=== PATIENT | female | born 1985 | race Caucasian/White ===

== ENCOUNTER 2016-07-23 13:42 | Emergency (ER) | payer BC, OTHER ==
[~2016-07-23] VITALS: Ht 160 cm; Wt 54.4 kg
[~2016-07-23 13:42] MED LIST: ABIL10TA PO; ABIL5TAB PO; ATIV0.5T3 PO; ATIV1TAB10 PO; BENA25CA PO; BENA25TA4 PO; CALC500T36 PO; CALC600T7 PO; CLAR5CHW PO; CLON0.5T PO; CLON1TAB PO; EFFE75CA75 PO; EXCETAB80 PO; FOLI1TAB86 PO; KEFL500C7 PO; KLON0.5T PO; KLON1TAB PO; LORA0.5T PO; MULTCAP PO; MULTLIQ7 PO; MULTTAB4 PO; POLYOPD OU; TRAZ50TA2 PO; VITA100T2 PO; VITA500046 PO; VITAMIN D PO; WELL100T PO; ZOLO100T PO; ZOLO50TA PO
[2016-07-23] MEDS ORDERED: FLUO20CA8 PO (14:20)
[2016-07-23] MEDS ORDERED: LORA2CON5 PO (14:20)
[2016-07-23] MEDS ORDERED: TOPA25TA10 PO (14:20)
[2016-07-23] MEDS ORDERED: LORA1TAB12 PO (14:20)
[2016-07-23] MEDS ORDERED: NS 1,000 ML IV ONE (16:15)
[2016-07-23] MEDS ORDERED: KETOROLAC 30 MG/ML VIAL (J1885) IV ONE (16:15)
[2016-07-23] MEDS ORDERED: METOCLOPRAMIDE INJ 10MG/2ML VIAL (J2765) IV ONE (16:30)
[2016-07-23] MEDS ORDERED: MORPHINE 4 MG/ML 1ML SYRINGE IV ONE (17:45)
[2016-07-23 18:38] VITALS: BP 113/66
== END 2016-07-23 18:40 | disposition home or self-care (01) ==
LOC: M ED 13:42
DX: G43.909 Migraine, unspecified, not intractable, without status migrainosus (principal); Z79.899 Other long term (current) drug therapy; Z88.8 Allergy status to other drugs, medicaments and biological substances
CPT/HCPCS: 96374; 96375; 99282; J1885; J2765

== ENCOUNTER → 2016-10-05 | Outpatient (CLI) | payer OTHER ==
[~2016-10-05] MED LIST changes: +FLUO20CA8 PO; +LORA1TAB12 PO; +LORA2CON5 PO; +TOPA25TA10 PO
[2016-10-05 07:54] LABS: MEAN CORPUSCULAR HEMOGLOBIN 29.6 pg (27.0-33.0); MEAN CORPUSCULAR HGB CONC 33.6 g/dl (32.0-36.5); MEAN CORPUSCULAR VOLUME 88.1 fl (80.0-96.0); PLATELET COUNT, AUTOMATED 343 k/mm3 (150-450); RED CELL DISTRIBUTION WIDTH 11.8 % (11.5-14.5); WHITE BLOOD COUNT 6.3 K/mm3 (4.0-10.0)
[2016-10-05 08:10] LABS: EOSINOPHILS 2 % (0-5)
[2016-10-05 08:19] LABS: ALBUMIN/GLOBULIN RATIO 1.25 (1.00-1.93); ALKALINE PHOSPHATASE 47 U/L (45-117); ALT/SGPT 17 U/L (12-78); ANION GAP 8 MEQ/L (8-16); AST/SGOT 8 U/L (15-37); BILIRUBIN,TOTAL 0.4 MG/DL (0.2-1.0); BLOOD UREA NITROGEN 9 MG/DL (7-18); CALCIUM LEVEL 8.6 MG/DL (8.5-10.1); CARBON DIOXIDE LEVEL 29 MEQ/L (21-32); CHLORIDE LEVEL 104 MEQ/L (98-107); CREATININE FOR GFR 0.72 MG/DL (0.55-1.02); FREE T4 0.95 NG/DL (0.76-1.46); GLOMERULAR FILTRATION RATE > 60.0 (>60); GLUCOSE, FASTING 91 MG/DL (70-105); SODIUM LEVEL 141 MEQ/L (136-145); TOTAL PROTEIN 7.2 GM/DL (6.4-8.2)
[2016-10-07 10:21] LABS: FOLATE > 24.0 NG/ML; VITAMIN B12 LEVEL 452 PG/ML
== END ==
LOC: M LAB 07:20
PROVIDERS: ATTEND Physician Assistant
DX: F33.1 Major depressive disorder, recurrent, moderate (principal)

== ENCOUNTER → 2017-07-23 | Outpatient (CLI) | payer OTHER ==
[2017-07-23 16:06] LABS: HEMATOCRIT 42.2 % (36.0-47.0); HEMOGLOBIN 14.4 g/dl (12.0-16.0); MEAN CORPUSCULAR HEMOGLOBIN 28.5 pg (27.0-33.0); MEAN CORPUSCULAR HGB CONC 34.1 g/dl (32.0-36.5); MEAN CORPUSCULAR VOLUME 83.6 fl (80.0-96.0); PLATELET COUNT, AUTOMATED 417 10^3/uL (150-450); RED BLOOD COUNT 5.05 10^6/uL (4.00-5.40); RED CELL DISTRIBUTION WIDTH 12.3 % (11.5-14.5); WHITE BLOOD COUNT 8.3 10^3/uL (4.0-10.0)
[2017-07-23 16:39] LABS: ALBUMIN 4.2 GM/DL (3.2-5.2); ALKALINE PHOSPHATASE 73 U/L (45-117); ALT/SGPT 23 U/L (12-78); ANION GAP 6 MEQ/L (8-16); AST/SGOT 10 U/L (7-37); BILIRUBIN,TOTAL 0.2 MG/DL (0.2-1.0); BLOOD UREA NITROGEN 13 MG/DL (7-18); CALCIUM LEVEL 9.3 MG/DL (8.5-10.1); CARBON DIOXIDE LEVEL 30 MEQ/L (21-32); CHLORIDE LEVEL 104 MEQ/L (98-107); CREATININE FOR GFR 0.74 MG/DL (0.55-1.30); GLOMERULAR FILTRATION RATE > 60.0 (>60); GLUCOSE, FASTING 127 MG/DL (70-100); POTASSIUM SERUM 3.6 MEQ/L (3.5-5.1); SODIUM LEVEL 140 MEQ/L (136-145); TOTAL PROTEIN 7.7 GM/DL (6.4-8.2); URIC ACID 4.9 MG/DL (2.6-6.0)
[2017-07-23 16:45] LABS: TOTAL 25(OH) VITAMIN D 20.3 NG/ML (30.0-100.0)
== END ==
LOC: M LAB 15:24
DX: M25.531 Pain in right wrist (principal); E55.9 Vitamin D deficiency, unspecified
CPT/HCPCS: 84550

== ENCOUNTER → 2018-08-04 | Outpatient (REF) | payer OTHER ==
[~2018-08-04] MED LIST changes: +EFFE75CA2 PO; -EFFE75CA75 PO; +KEFL500C17 PO; -KEFL500C7 PO; +TOPA1TAB PO; -TOPA25TA10 PO
[2018-08-06 15:52] LABS: HPV HYBRID CAPTURE II Negative (Negative)
== END ==
LOC: M LAB REF 19:28
PROVIDERS: ATTEND Family Medicine
DX: Z12.4 Encounter for screening for malignant neoplasm of cervix (principal)
CPT/HCPCS: 87624; G0123

== ENCOUNTER → 2018-12-23 | Outpatient (CLI) | payer OTHER, BC ==
[2018-12-23 11:45] LABS: BLOOD UREA NITROGEN 16 MG/DL (7-18); CALCIUM LEVEL 9.4 MG/DL (8.5-10.1); CARBON DIOXIDE LEVEL 31 MEQ/L (21-32); CHLORIDE LEVEL 104 MEQ/L (98-107); CHOLESTEROL LEVEL 206 MG/DL (<200); CHOLESTEROL RISK RATIO 3.269 (<5); CREATININE FOR GFR 0.72 MG/DL (0.55-1.30); GLOMERULAR FILTRATION RATE > 60.0 (>60); GLUCOSE, FASTING 83 MG/DL (70-100); HDL CHOLESTEROL 63 MG/DL (>40); LDL CHOLESTEROL 123 MG/DL (<100); NON-HDL-C 143 MG/DL; POTASSIUM SERUM 4.6 MEQ/L (3.5-5.1); SODIUM LEVEL 139 MEQ/L (136-145); TRIGLYCERIDES LEVEL 102 MG/DL (<150)
[2018-12-23 11:49] LABS: HEMOGLOBIN A1c 5.7 %
== END ==
LOC: M LAB 09:15
PROVIDERS: ATTEND Physician Assistant
DX: Z02.1 Encounter for pre-employment examination (principal)

== ENCOUNTER → 2019-01-11 | Outpatient (CLI) | payer BC ==
[2019-01-11 18:22] LABS: BASO # 0.1 10^3/uL (0.0-0.2); BASO % 0.7 % (0.0-1.0); EOS % 0.4 % (0.0-3.0); HEMATOCRIT 43.3 % (36.0-47.0); HEMOGLOBIN 14.4 g/dl (12.0-15.5); LYMPH % 25.8 % (24.0-44.0); MEAN CORPUSCULAR HEMOGLOBIN 29.8 pg (27.0-33.0); MEAN CORPUSCULAR HGB CONC 33.3 g/dl (32.0-36.5); MEAN CORPUSCULAR VOLUME 89.5 fl (80.0-96.0); MONO # 0.4 10^3/uL (0.0-0.8); MONO % 4.7 % (0.0-5.0); NEUTROPHILS # 5.2 10^3/uL (1.8-7.7); NEUTROPHILS % 68.1 % (36.0-66.0); PLATELET COUNT, AUTOMATED 280 10^3/uL (150-450); RED BLOOD COUNT 4.84 10^6/uL (4.00-5.40); WHITE BLOOD COUNT 7.6 10^3/uL (4.0-10.0)
[2019-01-11 18:51] LABS: ALBUMIN 4.2 GM/DL (3.2-5.2); ALT/SGPT 22 U/L (12-78); BILIRUBIN,TOTAL 0.4 MG/DL (0.2-1.0); BLOOD UREA NITROGEN 21 MG/DL (7-18); CALCIUM LEVEL 9.5 MG/DL (8.5-10.1); CARBON DIOXIDE LEVEL 29 MEQ/L (21-32); CHLORIDE LEVEL 104 MEQ/L (98-107); CREATININE FOR GFR 0.82 MG/DL (0.55-1.30); GLOMERULAR FILTRATION RATE > 60.0 (>60); GLUCOSE, FASTING 114 MG/DL (70-100); POTASSIUM SERUM 4.1 MEQ/L (3.5-5.1); RHEUMATOID FACTOR QUANT < 10.0 IU/ML (<15.0); SODIUM LEVEL 138 MEQ/L (136-145); TOTAL 25(OH) VITAMIN D 68.8 NG/ML (30.0-100.0); TOTAL PROTEIN 7.4 GM/DL (6.4-8.2)
[2019-01-11 18:54] LABS: ERYTHROCYTE SEDIMENTATION RATE 2 mm/hr (0-20)
[2019-01-13 14:07] LABS: ANTINUCLEAR ANTIBODIES DIRECT Negative (Negative)
== END ==
LOC: M LAB 17:46
PROVIDERS: ATTEND Psychiatry & Neurology Neurology
DX: R51 Headache (principal)

== ENCOUNTER → 2019-04-17 | Outpatient (CLI) | payer BC ==
[2019-04-17 10:23] LABS: HEMOGLOBIN A1c 5.6 %
== END ==
LOC: M LAB 09:31
PROVIDERS: ATTEND Family Medicine
DX: R73.9 Hyperglycemia, unspecified (principal)

== ENCOUNTER 2019-05-13 09:21 | Emergency (ER) | payer OTHER ==
[~2019-05-13] VITALS: Ht 160 cm; Wt 51.0 kg
[2019-05-13 09:21] VITALS: BP 148/92
[~2019-05-13 09:21] MED LIST changes: +FLUO20CA20 PO; -FLUO20CA8 PO
[2019-05-13] MEDS ORDERED: SERO1TAB3 PO (09:29)
[2019-05-13] MEDS ORDERED: EMGA120I (09:29)
[2019-05-13] MEDS ORDERED: ADDE25CA (09:29)
[2019-05-13] MEDS ORDERED: BRIN1TAB3 (09:29)
[2019-05-13] MEDS ORDERED: ATIV1TAB7 (09:29)
[2019-05-13] MEDS ORDERED: ADDE1TAB14 (09:29)
[2019-05-13] MEDS ORDERED: RIZA5TAB (09:29)
[2019-05-13] MEDS ORDERED: BACL10TA2 (09:29)
[2019-05-13] MEDS ORDERED: IBUPROFEN 600 MG TAB PO ONE (10:30)
[2019-05-13] MEDS ORDERED: ONDANSETRON 4 MG ORAL DISINTEGRATING TAB (Q0162 PER 1MG) PO ONE (10:30)
[2019-05-13] MEDS ORDERED: ONDA4TAB6 PO (10:30)
== END 2019-05-13 10:40 | disposition home or self-care (01) ==
LOC: M ED 09:21
DX: S46.812A Strain of other muscles, fascia and tendons at shoulder and upper arm level, left arm, initial encounter (principal); V49.49XA Driver injured in collision with other motor vehicles in traffic accident, initial encounter; Y92.410 Unspecified street and highway as the place of occurrence of the external cause; F43.10 Post-traumatic stress disorder, unspecified; R63.0 Anorexia; Z79.899 Other long term (current) drug therapy; Z88.8 Allergy status to other drugs, medicaments and biological substances
CPT/HCPCS: 99283; Q0162

== ENCOUNTER → 2019-08-06 | Outpatient (CLI) | payer OTHER ==
[~2019-08-06] MED LIST changes: +ADDE1TAB14; +ADDE25CA; +ATIV1TAB7; +BACL10TA2; +BRIN1TAB3; +EMGA120I; -LORA1TAB12 PO; +LORA1TAB4 PO; +ONDA4TAB6 PO; +RIZA5TAB; +SERO1TAB3 PO
--- NOTE | 2019-08-06 16:50 | REP ---
HISTORY: Hip pain. No trauma. FINDINGS: The hip joint space is symmetric and relatively well maintained. There is no acute or destructive osseous lesion. Electronically Signed by Jhonny Wong DO 08/06/2019 06:49 P
== END ==
LOC: M RAD 15:40
PROVIDERS: ATTEND Nurse Practitioner Family
DX: M25.551 Pain in right hip (principal)

== ENCOUNTER → 2019-11-02 | Outpatient (CLI) | payer OTHER ==
--- NOTE | 2019-11-02 16:24 | REP ---
MRI RIGHT HIP: TECHNIQUE: Coronal T1, STIR through the pelvis, T2 fat sat, right hip all three planes, axial oblique proton density fat sat right hip. The visualized osseous structures demonstrate normal bone marrow signal. There is no bone marrow edema or occult fracture. There is no evidence of avascular necrosis. I do not see evidence of a labral tear. No paralabral cyst is seen. There is a normal amount of joint fluid. 6 mm cyst is seen posteriorly along the obturator externus musculotendinous region. No other abnormal signal is seen in the surrounding soft tissues. There is a left ovarian cyst , which measures 4.2 cm. Right ovary is normal. There is mild free fluid in the pelvis. IMPRESSION: No occult fracture. No evidence of a labral tear. 6 mm cyst posteriorly along the musculotendinous region of the obturator externus. 4.2 cm left ovarian cyst with mild free fluid in the pelvis. Electronically Signed by Ovi Zaidi MD 11/04/2019 12:53 A
== END ==
LOC: M RAD 13:40
PROVIDERS: ATTEND Nurse Practitioner Family
DX: M25.551 Pain in right hip (principal)

== ENCOUNTER → 2019-11-23 | Outpatient (CLI) | payer OTHER | LOC: M LABSMTC 11:20 | PROVIDERS: ATTEND Family Medicine | DX: Z11.59 Encounter for screening for other viral diseases (principal); Z03.89 Encounter for observation for other suspected diseases and conditions ruled out | CPT/HCPCS: C9803; U0003 ==

== ENCOUNTER → 2020-01-26 | Outpatient (CLI) | payer OTHER ==
[~2020-01-26] MED LIST changes: -ADDE25CA; +ADDE25CA PO; -ATIV1TAB7; +ATIV1TAB7 PO; -BRIN1TAB3; +BRIN1TAB3 PO; +CALC-212 PO; -CALC600T7 PO; +CHOL50002 PO; +CYMB1CAP4 PO; +EXCETAB33 PO; +FLOM0.4C39 PO; +IBUP-1022 PO; +LACT3000 PO; +LORA-243 PO; +NORC1TAB7 PO; -RIZA5TAB; +RIZA5TAB PO; +SUMA50TA2 PO; +ZOFR4TAB16 PO; +vitamin b2 PO
[2020-01-26 08:54] LABS: BASO # 0.1 10^3/uL (0.0-0.2); BASO % 1.1 % (0.0-1.0); EOS # 0.2 10^3/uL (0.0-0.5); EOS % 2.8 % (0.0-3.0); HEMOGLOBIN 15.3 g/dl (12.0-15.5); LYMPH # 2.5 10^3/uL (1.5-5.0); LYMPH % 46.8 % (24.0-44.0); MEAN CORPUSCULAR HEMOGLOBIN 29.6 pg (27.0-33.0); MEAN CORPUSCULAR HGB CONC 33.3 g/dl (32.0-36.5); MONO # 0.4 10^3/uL (0.0-0.8); MONO % 6.5 % (0.0-5.0); NEUTROPHILS # 2.3 10^3/uL (1.5-8.5); NEUTROPHILS % 42.6 % (36.0-66.0); PLATELET COUNT, AUTOMATED 334 10^3/uL (150-450); RED BLOOD COUNT 5.17 10^6/uL (4.00-5.40); WHITE BLOOD COUNT 5.4 10^3/uL (4.0-10.0)
[2020-01-26 09:19] LABS: ALBUMIN 4.2 GM/DL (3.2-5.2); ALT/SGPT 23 U/L (12-78); BILIRUBIN,TOTAL 0.6 MG/DL (0.2-1.0); BLOOD UREA NITROGEN 13 MG/DL (7-18); CALCIUM LEVEL 9.7 MG/DL (8.5-10.1); CARBON DIOXIDE LEVEL 33 MEQ/L (21-32); CHLORIDE LEVEL 102 MEQ/L (98-107); CREATININE FOR GFR 0.77 MG/DL (0.55-1.30); FREE T4 1.11 NG/DL (0.76-1.46); GLOMERULAR FILTRATION RATE > 60.0 (>60); GLUCOSE, FASTING 87 MG/DL (70-100); POTASSIUM SERUM 4.3 MEQ/L (3.5-5.1); SODIUM LEVEL 140 MEQ/L (136-145); TOTAL PROTEIN 7.3 GM/DL (6.4-8.2)
== END ==
LOC: M LAB 07:42
PROVIDERS: ATTEND Family Medicine
DX: Z13.0 Encounter for screening for diseases of the blood and blood-forming organs and certain disorders involving the immune mechanism (principal); Z13.29 Encounter for screening for other suspected endocrine disorder; F33.1 Major depressive disorder, recurrent, moderate

== ENCOUNTER 2020-01-29 05:06 | Emergency (ER) | payer OTHER ==
[~2020-01-29] VITALS: Ht 160 cm; Wt 50.0 kg
[~2020-01-29 05:06] MED LIST changes: -CHOL50002 PO; -CYMB1CAP4 PO; -EXCETAB33 PO; -FLOM0.4C39 PO; -IBUP-1022 PO; -LACT3000 PO; -LORA-243 PO; -NORC1TAB7 PO; -SUMA50TA2 PO; -ZOFR4TAB16 PO; -vitamin b2 PO
[2020-01-29] MEDS ORDERED: NS 1,000 ML IV ONE (06:30)
[2020-01-29 06:53] LABS: BASO % 0.7 % (0.0-1.0); EOS # 0.1 10^3/uL (0.0-0.5); EOS % 1.3 % (0.0-3.0); HEMATOCRIT 42.6 % (36.0-47.0); HEMOGLOBIN 14.3 g/dl (12.0-15.5); LYMPH # 1.6 10^3/uL (1.5-5.0); LYMPH % 30.1 % (24.0-44.0); MEAN CORPUSCULAR HGB CONC 33.6 g/dl (32.0-36.5); MEAN CORPUSCULAR VOLUME 89.5 fl (80.0-96.0); MONO # 0.2 10^3/uL (0.0-0.8); MONO % 4.5 % (0.0-5.0); NEUTROPHILS # 3.4 10^3/uL (1.5-8.5); NEUTROPHILS % 63.2 % (36.0-66.0); PLATELET COUNT, AUTOMATED 290 10^3/uL (150-450); RED BLOOD COUNT 4.76 10^6/uL (4.00-5.40); WHITE BLOOD COUNT 5.3 10^3/uL (4.0-10.0)
[2020-01-29] MEDS ORDERED: MORPHINE 4 MG/ML 1ML VIAL/SYRINGE (J2270) IV ONE (07:00)
[2020-01-29 07:13] LABS: HCG, SERUM QUALITATIVE NEGATIVE (NEGATIVE)
[2020-01-29 07:16] LABS: BLOOD UREA NITROGEN 11 MG/DL (7-18); CALCIUM LEVEL 8.7 MG/DL (8.5-10.1); CARBON DIOXIDE LEVEL 31 MEQ/L (21-32); CHLORIDE LEVEL 105 MEQ/L (98-107); CREATININE FOR GFR 0.72 MG/DL (0.55-1.30); GLOMERULAR FILTRATION RATE > 60.0 (>60); GLUCOSE, FASTING 102 MG/DL (70-100); POTASSIUM SERUM 3.5 MEQ/L (3.5-5.1); SODIUM LEVEL 140 MEQ/L (136-145)
--- NOTE | 2020-01-29 07:44 | REPVR ---
PROCEDURE INFORMATION: Exam: CT Abdomen And Pelvis Without Contrast Exam date and time: 01/29/2020 7:25 AM Age: 34 years old Clinical indication: Abdominal pain; Flank; Other: Renal colic TECHNIQUE: Imaging protocol: Computed tomography of the abdomen and pelvis without contrast. Radiation optimization: All CT scans at this facility use at least one of these dose optimization techniques: automated exposure control; mA and/or kV adjustment per patient size (includes targeted exams where dose is matched to clinical indication); or iterative reconstruction. COMPARISON: MRI-Hip WITHOUT CONTRAST RIGHT 11/02/2019 2:41 PM FINDINGS: Limitations: Evaluation is somewhat limited by lack of IV contrast. Lungs: The visualized lung bases demonstrate minor dependent atelectasis. Liver: Grossly unremarkable. Gallbladder and bile ducts: No gallstones are evident, but ultrasound would be more sensitive. No gross biliary ductal dilatation. Pancreas: Grossly unremarkable. Spleen: Grossly unremarkable. Adrenals: Grossly unremarkable. Kidneys and ureters: Mild right-sided hydronephrosis secondary to a 6 x 5 x 2 mm stone at the ureteropelvic junction. Beyond this, the ureter is not dilated, and no additional ureteral calculus is identified. There is no left-sided hydronephrosis or stone, and the kidneys appear otherwise grossly unremarkable. Stomach and bowel: The unopacified small bowel is not significantly distended to suggest obstruction. The large bowel is grossly unremarkable in appearance. Appendix: The appendix appears normal. Intraperitoneal space: No free air or significant free fluid. Vasculature: Unremarkable. No abdominal aortic aneurysm. Lymph nodes: No gross pathologic lymphadenopathy. Bladder: Grossly unremarkable. Reproductive: No gross adnexal abnormality is apparent, but ultrasound would be more appropriate in this regard. Bones/joints: Unremarkable. No acute fracture. Soft tissues: Unremarkable. IMPRESSION: Mild right-sided hydronephrosis secondary to a 6 x 5 x 2 mm stone at the ureteropelvic junction. Electronically signed by: Aravind Tan On 01/29/2020 07:44:23 AM
[2020-01-29] MEDS ORDERED: ZOFR4TAB16 PO (08:06)
[2020-01-29] MEDS ORDERED: NORC1TAB7 PO (08:07)
[2020-01-29] MEDS ORDERED: FLOM0.4C39 PO (08:08)
[2020-01-29] MEDS ORDERED: IBUP-1022 PO (08:10)
[2020-01-29 09:00] VITALS: BP 118/65
[2020-02-24] MEDS ORDERED: SUMA50TA2 PO (08:31)
[2020-02-24] MEDS ORDERED: vitamin b2 PO (08:31)
[2020-02-24] MEDS ORDERED: LORA-243 PO (08:31)
[2020-02-24] MEDS ORDERED: CHOL50002 PO (08:31)
[2020-02-24] MEDS ORDERED: EXCETAB33 PO (08:31)
[2020-02-24] MEDS ORDERED: CYMB1CAP4 PO (08:31)
[2020-02-24] MEDS ORDERED: LACT3000 PO (08:31)
== END 2020-01-29 09:04 | disposition home or self-care (01) ==
LOC: M ED 05:06
DX: N13.39 Other hydronephrosis (principal); N20.1 Calculus of ureter; R31.9 Hematuria, unspecified; F32.9 Major depressive disorder, single episode, unspecified; F60.3 Borderline personality disorder; F50.00 Anorexia nervosa, unspecified
CPT/HCPCS: 74176; 80048; 81001; 84703; 85025; 96361; 96374; 99284; J2270

== ENCOUNTER → 2020-02-10 | Outpatient (CLI) | payer OTHER ==
[~2020-02-10] MED LIST changes: +CHOL50002 PO; +CYMB1CAP4 PO; +EXCETAB33 PO; +FLOM0.4C39 PO; +IBUP-1022 PO; +LACT3000 PO; +LORA-243 PO; +NORC1TAB7 PO; +SUMA50TA2 PO; +ZOFR4TAB16 PO; +vitamin b2 PO
--- NOTE | 2020-02-24 13:16 | REP ---
ABDOMINAL RADIOGRAPH: CLINICAL: Nephrolithiasis. TECHNIQUE: Single supine view of the abdomen and pelvis. FINDINGS: No obvious urinary calcifications are appreciated although evaluation is limited by overlying bowel gas. No bowel obstruction. Fecal stasis cannot be excluded. No organomegaly. Scoliosis noted. IMPRESSION: No obvious urinary tract calcifications identified. MTDD
--- NOTE | 2020-03-10 09:58 | REP ---
CHEST X-RAY: CLINICAL: Preoperative assessment. Nephrolithiasis. TECHNIQUE: PA and lateral COMPARISON: 01/11/14 FINDINGS: Mediastinum and cardiac silhouette are normal. Chronic scoliosis noted. Lung gonzalez are clear and without consolidation, effusion or pneumothorax. Skeletal structures are intact. IMPRESSION: No acute cardiopulmonary process or focal consolidation. MTDD
== END ==
LOC: M RAD 16:15
PROVIDERS: ATTEND Urology
DX: N20.0 Calculus of kidney (principal)

== ENCOUNTER → 2020-02-26 | Outpatient (CLI) | payer OTHER ==
[2020-02-26 09:51] LABS: APPEARANCE, URINE CLOUDY (CLEAR); BACTERIA, URINE AUTO 1+ (NEGATIVE); BILIRUBIN, URINE AUTO NEGATIVE (NEGATIVE); BLOOD, URINE BLOOD NEGATIVE (NEGATIVE); COLOR, URINE AMBER (YELLOW); GLUCOSE, URINE (UA) AUTO NEGATIVE (NEGATIVE); KETONE, URINE AUTO NEGATIVE (NEGATIVE); LEUKOCYTE ESTERASE, URINE AUTO NEGATIVE (NEGATIVE); MUCUS, URINE SMALL (NEGATIVE); NITRITE, URINE AUTO NEGATIVE (NEGATIVE); PROTEIN, URINE AUTO NEGATIVE (NEGATIVE); RBC, URINE AUTO 3 /HPF (0-3); SPECIFIC GRAVITY URINE AUTO 1.021 (1.002-1.035); SQUAMOUS EPITHELIAL CELL UR AU 1 /HPF (0-6); UROBILINOGEN, URINE AUTO 0.2 mg/dL (0.0-2.0); WBC, URINE AUTO 2 /HPF (0-3)
[2020-02-26 09:52] LABS: HEMATOCRIT 44.8 % (36.0-47.0); MEAN CORPUSCULAR HEMOGLOBIN 29.7 pg (27.0-33.0); MEAN CORPUSCULAR HGB CONC 33.5 g/dl (32.0-36.5); MEAN CORPUSCULAR VOLUME 88.7 fl (80.0-96.0); PLATELET COUNT, AUTOMATED 359 10^3/uL (150-450); RED BLOOD COUNT 5.05 10^6/uL (4.00-5.40)
== END ==
LOC: M LAB 08:38
PROVIDERS: ATTEND Urology
DX: N20.0 Calculus of kidney (principal)

== ENCOUNTER → 2020-02-26 | Outpatient (CLI) | payer OTHER | LOC: M LABSMTC 08:13 | PROVIDERS: ATTEND Anesthesiology | DX: Z01.812 Encounter for preprocedural laboratory examination (principal); Z20.828 Contact with and (suspected) exposure to other viral communicable diseases ==

== ENCOUNTER 2020-03-02 06:22 | Day surgery (SDC) | payer OTHER ==
[~2020-03-02] VITALS: Ht 160 cm; Wt 48.5 kg
[2020-03-02] MEDS ORDERED: ceFAZolin SOD 2 GM in IV 1 EA IV ONE (07:00)
[2020-03-02] MEDS ORDERED: LR 1,000 ML IV ONE (07:00)
[2020-03-02] MEDS ORDERED: MIDAZOLAM INJ 2MG/2ML VIAL (J2250 PER 1MG) As Ordered ONE (07:17)
[2020-03-02] MEDS ORDERED: fentaNYL 100 MCG/2 ML INJECTION (J3010) As Ordered ONE (07:17)
[2020-03-02] MEDS ORDERED: LIDOCAINE 2% 100MG/5ML SDV (FOR ANES.) As Ordered ONE (07:17)
[2020-03-02] MEDS ORDERED: propofoL 200 MG/20 ML VIAL As Ordered ONE (07:17)
[2020-03-02] MEDS ORDERED: ONDANSETRON 4MG/2ML VIAL As Ordered ONE (07:18)
[2020-03-02] MEDS ORDERED: ePHEDrine SULFATE 25 MG/5 ML(5MG/ML) SYRINGE As Ordered ONE (08:01)
[2020-03-02] MEDS ORDERED: PHENYLephrine HCL 500 MCG/5 ML (100MCG/ML) SYRINGE (J2370) As Ordered ONE (08:01)
--- NOTE | 2020-03-02 08:05 | ROOPDOC ---
[facility] Report Of Operation Report of Operation DATE OF PROCEDURE: 03/02/20 PREPROCEDURE DIAGNOSIS: Kidney stone. POSTPROCEDURE DIAGNOSIS: Kidney stone. PROCEDURE: Right extracorporeal shock wave lithotripsy. SURGEON: Luis Schulz MD [employer] PROFESSOR: None. ANESTHESIA: Monitored anesthesia care (MAC). OPERATIVE INDICATIONS: This is a 34-year-old female recently found to have an obstructing 6mm right ureteropelvic junction stone. She was brought to the operating room today for treatment. DESCRIPTION OF PROCEDURE: The patient was brought to the operating room and monitored anesthesia care (MAC) was administered. Prophylactic antibiotics were infused. She was then placed in the supine position for right-sided extracorporeal shock wave lithotripsy. Fluoroscopy and ultrasonography were utilized to monitor stone position and fragmentation throughout the procedure. Shock waves were then delivered to the 6mm stone, ungated. There were no arrhythmias. The stone did appear to fragment well. After 2500 shocks, the procedure was concluded. The patient was then awakened from anesthesia and transported to the recovery room in stable condition. Estimated blood loss: Zero mL. Complications: None. Specimens: None. Plan: The patient will followup in the clinic in a few weeks with imaging prior to assess for residual stone burden. LUIS SCHULZ MD Mar 02, 2020 08:05
[2020-03-02 08:55] VITALS: BP 105/62
--- NOTE | 2020-03-06 10:53 | REP ---
KUB: SINGLE VIEW HISTORY: Kidney stone. COMPARISON STUDY: 02/10/2020. FINDINGS: Bowel gas pattern is normal. There is a minimal levoconvex lumbar curve. Flank stripes and psoas margins are intact. No mass or organomegaly is seen. There is a 5-mm irregular calcification overlying the right transverse process at L2 in the region of the renal pelvis ureteral junction. This corresponds with the CT finding from 01/29/2020. No other urinary tract calculus is visible. IMPRESSION: 5-mm calcific density overlies the right transverse process at L2 consistent with a right ureteropelvic junction (UPJ) stone. MTDD
== END 2020-03-02 09:00 | disposition home or self-care (01) ==
LOC: M SDC 06:22
PROVIDERS: ATTEND Urology
DX: N20.0 Calculus of kidney (principal); G43.909 Migraine, unspecified, not intractable, without status migrainosus; F90.9 Attention-deficit hyperactivity disorder, unspecified type; F41.9 Anxiety disorder, unspecified; F32.9 Major depressive disorder, single episode, unspecified; Z79.899 Other long term (current) drug therapy; Z88.8 Allergy status to other drugs, medicaments and biological substances
CPT/HCPCS: 50590; 74018; 81025; J2250; J2370; J2405; J3010

== ENCOUNTER → 2020-03-27 | Outpatient (CLI) | payer OTHER ==
--- NOTE | 2020-03-27 18:30 | REP ---
INDICATION: KIDNEY STONE. COMPARISON: 03/02/2022 KUB TECHNIQUE: Single supine abdomen view. FINDINGS: Is a 3 mm subtle density over the right renal fossa lateral to the L2 transverse process and just below it. The previously noted 5 mm calcification overlying the transverse process is not seen there or anywhere along the expected course of the ureter. Volume of stool in the lower abdomen and pelvis but certainly obscure it. I do not see any left-sided renal or ureteral stones. No visible calcifications in the true pelvis. Levorotatory curve lumbar spine unchanged and centered at L2. Pelvis and hips unchanged. IMPRESSION: 1. Subtle 3 mm density overlying the renal fossa in the right upper quadrant could be small stone or remnant of the 5 mm stone visible overlying the transverse process of L2 on the previous x-ray. There is no other visible calcification over the renal fossa the or expected course of the right ureter into the pelvis. <Electronically signed by Edis Baptiste > 03/27/20 [id number]
== END ==
LOC: M RAD 16:46
PROVIDERS: ATTEND Nurse Practitioner Women's Health
DX: N20.0 Calculus of kidney (principal)

== ENCOUNTER → 2020-03-28 | Outpatient (REF) | payer OTHER ==
[2020-03-28 18:26] LABS: APPEARANCE, URINE HAZY (CLEAR); BACTERIA, URINE AUTO 1+ (NEGATIVE); BILIRUBIN, URINE AUTO NEGATIVE (NEGATIVE); BLOOD, URINE BLOOD 1+ (NEGATIVE); COLOR, URINE YELLOW (YELLOW); GLUCOSE, URINE (UA) AUTO NEGATIVE (NEGATIVE); KETONE, URINE AUTO NEGATIVE (NEGATIVE); LEUKOCYTE ESTERASE, URINE AUTO NEGATIVE (NEGATIVE); NITRITE, URINE AUTO NEGATIVE (NEGATIVE); PROTEIN, URINE AUTO NEGATIVE (NEGATIVE); RBC, URINE AUTO 6 /HPF (0-3); SPECIFIC GRAVITY URINE AUTO 1.013 (1.002-1.035); SQUAMOUS EPITHELIAL CELL UR AU 1 /HPF (0-6); UROBILINOGEN, URINE AUTO 0.2 mg/dL (0.0-2.0); WBC, URINE AUTO 2 /HPF (0-3)
== END ==
LOC: M SMT 16:53
PROVIDERS: ATTEND Nurse Practitioner Women's Health
DX: N20.0 Calculus of kidney (principal)

== ENCOUNTER → 2020-04-07 | Outpatient (CLI) | payer OTHER ==
--- NOTE | 2020-04-07 08:23 | REP ---
INDICATION: KIDNEY STONE. CONTRAST: None COMPARISON: 01/29/2020 TECHNIQUE: Renal stone protocol FINDINGS: CT abdomen: The lung bases are clear. Heart is not enlarged there is no pericardial thickening or effusion. I see no hiatal hernia. The liver, spleen, gallbladder, stomach, pancreas and adrenal glands are normal. Stool and gas scattered in the colon which is unremarkable. Small bowel loops unremarkable. The right kidney shows a 3 x 3 mm stone in the lower pole which was not present on the previous study the right UPJ stone which was 6 x 5 mm is no longer visible. I suspect this new calcification is a fragment of that stone. The hydronephrosis caused by the previous UPJ stone has resolved. There is no hydroureter or stone in the right ureter. No bladder calculus. The left kidney is unremarkable. Its collecting system and ureter without stone or dilatation. Subtle levoconvex curve of the lumbar spine. The bones are unchanged. CT pelvis: No abdominal or pelvic free fluid. Uterus retroverted. There is a 2.2 cm dominant follicle in the left ovary. No pelvic masses or free fluid. Abdominal portions of colon and small bowel loops were unremarkable. No ventral or inguinal hernia nor pathologic sized inguinal adenopathy. Bladder only partially filled without mass wall thickening or stone. The distal ureters are not dilated and there is no stone. Bony pelvis was unremarkable IMPRESSION: 1. There is no renal obstruction on the right side today. The previous 6 x 5 mm UPJ stone is no longer present. However there is a 3 mm stone in the lower pole on the right side which is new and I suspect a fragment of that original UPJ obstructing stone. No other fragments are seen in the collecting system or right ureter. No hydroureter or bladder stone. 2. Otherwise negative study <Electronically signed by Edis Baptiste > 04/07/20 [id number]
== END ==
LOC: M RAD 07:09
PROVIDERS: ATTEND Nurse Practitioner Women's Health
DX: N20.0 Calculus of kidney (principal)

== ENCOUNTER → 2020-04-25 | Outpatient (CLI) | payer OTHER ==
--- NOTE | 2020-04-27 06:41 | REP ---
INDICATION: OVARIAN CYST LT SIDE COMPARISON: None. TECHNIQUE: Transabdominal pelvic ultrasound followed by transvaginal examination for better evaluation of the endometrium and adnexa. FINDINGS: Bladder is unremarkable and measures 7.6 x 2.3 x 5.0 cm. Normal anteverted uterus measures 6.7 x 3.8 x 4.5 cm. The endometrial complex measures 3.1 mm thickness. No uterine or endometrial abnormality noted. Bilateral ovaries are normal in appearance and no significant ovarian cystic changes are appreciated. Right ovary measures 4.1 x 1.7 x 1.7 cm; left ovary measures 3.1 x 2.0 x 2.8 cm. No pelvic fluid or adnexal mass lesion. IMPRESSION: Normal pelvic ultrasound. <Electronically signed by Mark Garcia > 04/27/20 [id number]
== END ==
LOC: M RAD 15:35
PROVIDERS: ATTEND Family Medicine
DX: N83.202 Unspecified ovarian cyst, left side (principal)

== ENCOUNTER → 2021-02-03 | Outpatient (CLI) | payer BC ==
[~2021-02-03] MED LIST changes: -RIZA5TAB PO; +RIZA5TAB2 PO
[2021-02-03 13:36] LABS: BASO % 0.8 % (0.0-1.0); EOS # 0.2 10^3/uL (0.0-0.5); EOS % 4.7 % (0.0-3.0); HEMATOCRIT 45.3 % (36.0-47.0); HEMOGLOBIN 15.5 g/dl (12.0-15.5); LYMPH # 2.6 10^3/uL (1.5-5.0); LYMPH % 52.2 % (24.0-44.0); MEAN CORPUSCULAR HEMOGLOBIN 30.1 pg (27.0-33.0); MEAN CORPUSCULAR HGB CONC 34.2 g/dl (32.0-36.5); MONO # 0.3 10^3/uL (0.0-0.8); MONO % 5.3 % (2.0-8.0); NEUTROPHILS # 1.8 10^3/uL (1.5-8.5); NEUTROPHILS % 36.8 % (36.0-66.0); PLATELET COUNT, AUTOMATED 360 10^3/uL (150-450); RED BLOOD COUNT 5.15 10^6/uL (4.00-5.40); WHITE BLOOD COUNT 4.9 10^3/uL (4.0-10.0)
[2021-02-03 14:10] LABS: ALBUMIN 4.2 GM/DL (3.2-5.2); ALT/SGPT 22 U/L (12-78); BILIRUBIN,TOTAL 0.5 MG/DL (0.2-1.0); BLOOD UREA NITROGEN 13 MG/DL (7-18); CALCIUM LEVEL 9.3 MG/DL (8.5-10.1); CARBON DIOXIDE LEVEL 30 MEQ/L (21-32); CHLORIDE LEVEL 104 MEQ/L (98-107); CREATININE FOR GFR 0.83 MG/DL (0.55-1.30); FREE T4 1.14 NG/DL (0.76-1.46); GLOMERULAR FILTRATION RATE > 60.0 (>60); GLUCOSE, FASTING 94 MG/DL (70-100); POTASSIUM SERUM 4.5 MEQ/L (3.5-5.1); SODIUM LEVEL 139 MEQ/L (136-145); TOTAL PROTEIN 7.3 GM/DL (6.4-8.2)
== END ==
LOC: M LAB 12:50
PROVIDERS: ATTEND Family Medicine
DX: Z13.29 Encounter for screening for other suspected endocrine disorder (principal); Z13.0 Encounter for screening for diseases of the blood and blood-forming organs and certain disorders involving the immune mechanism

== ENCOUNTER → 2021-08-04 | Outpatient (CLI) | payer BC ==
[~2021-08-04] MED LIST changes: +FLUO-96 PO; -FLUO20CA20 PO
[2021-08-04 12:47] LABS: BASO # 0.1 10^3/uL (0.0-0.2); BASO % 1.1 % (0.0-1.0); EOS # 0.2 10^3/uL (0.0-0.5); EOS % 3.6 % (0.0-3.0); HEMATOCRIT 42.5 % (36.0-47.0); HEMOGLOBIN 14.5 g/dl (12.0-15.5); LYMPH # 2.3 10^3/uL (1.5-5.0); LYMPH % 50.9 % (24.0-44.0); MEAN CORPUSCULAR HEMOGLOBIN 29.8 pg (27.0-33.0); MEAN CORPUSCULAR HGB CONC 34.1 g/dl (32.0-36.5); MEAN CORPUSCULAR VOLUME 87.4 fl (80.0-96.0); MONO # 0.3 10^3/uL (0.0-0.8); NEUTROPHILS # 1.7 10^3/uL (1.5-8.5); NEUTROPHILS % 38.2 % (36.0-66.0); PLATELET COUNT, AUTOMATED 333 10^3/uL (150-450); RED BLOOD COUNT 4.86 10^6/uL (4.00-5.40); WHITE BLOOD COUNT 4.5 10^3/uL (4.0-10.0)
[2021-08-04 13:20] LABS: ALBUMIN 4.3 GM/DL (3.2-5.2); ALT/SGPT 25 U/L (12-78); BILIRUBIN,TOTAL 0.5 MG/DL (0.2-1.0); BLOOD UREA NITROGEN 13 MG/DL (7-18); CALCIUM LEVEL 9.1 MG/DL (8.5-10.1); CARBON DIOXIDE LEVEL 31 MEQ/L (21-32); CHLORIDE LEVEL 104 MEQ/L (98-107); FREE T4 1.14 NG/DL (0.76-1.46); GLOMERULAR FILTRATION RATE > 60.0 (>60); GLUCOSE, FASTING 85 MG/DL (70-100); MAGNESIUM LEVEL 2.3 MG/DL (1.8-2.4); POTASSIUM SERUM 4.1 MEQ/L (3.5-5.1); SODIUM LEVEL 139 MEQ/L (136-145); THYROID STIMULATING HORMONE 0.892 uIU/ML (0.358-3.740); TOTAL PROTEIN 7.2 GM/DL (6.4-8.2)
== END ==
LOC: M LAB 11:27
PROVIDERS: ATTEND Physician Assistant
DX: F33.1 Major depressive disorder, recurrent, moderate (principal); R00.0 Tachycardia, unspecified

== ENCOUNTER → 2021-08-22 | Outpatient (CLI) | payer BC | LOC: M WHC 06:57 | PROVIDERS: ATTEND Physician Assistant | DX: R92.2 Inconclusive mammogram (principal) ==

== ENCOUNTER → 2021-09-04 | Outpatient (CLI) | payer BC | LOC: M WHC 09:02 | PROVIDERS: ATTEND Physician Assistant | DX: R92.2 Inconclusive mammogram (principal) ==

== ENCOUNTER → 2021-10-25 | Outpatient (CLI) | payer BC ==
[~2021-10-25] MED LIST changes: +**SFHN** LIDOCAINE 1% MDV 20ML VIAL ONE; +**SFHN** SODIUM BICARBONATE 8.4% 50MEQ 50ML VIAL ONE; +EXCETAB32 PO; -EXCETAB33 PO; +PROP10TA56 PO; +VITMTA PO
[2021-10-25 13:49] VITALS: BP 114/80
== END ==
LOC: M WHCPRO 12:40
PROVIDERS: ATTEND Physician Assistant
DX: D24.2 Benign neoplasm of left breast (principal); Z80.3 Family history of malignant neoplasm of breast
CPT/HCPCS: 19083; 77065; 88305; G0279

== ENCOUNTER → 2022-10-07 | Outpatient (CLI) | payer BC ==
[~2022-10-07] MED LIST changes: -**SFHN** LIDOCAINE 1% MDV 20ML VIAL ONE; -**SFHN** SODIUM BICARBONATE 8.4% 50MEQ 50ML VIAL ONE; -LACT3000 PO; +LACT30006 PO; +LORA1TAB23 PO; -LORA1TAB4 PO
[2022-10-07 15:56] LABS: THYROID STIMULATING HORMONE 1.569 uIU/ML (0.55-4.78); TOTAL 25(OH) VITAMIN D 21.5 NG/ML (20.0-100.0)
[2022-10-07 15:57] LABS: FREE T4 1.14 NG/DL (0.89-1.76)
== END ==
LOC: M LAB 15:05
PROVIDERS: ATTEND Family Medicine
DX: E55.9 Vitamin D deficiency, unspecified (principal)

== ENCOUNTER → 2023-08-04 | Outpatient (CLI) | payer BC ==
[2023-08-04 12:01] LABS: BASO # 0.1 10^3/uL (0.0-0.2); BASO % 0.9 % (0.0-1.0); EOS # 0.1 10^3/uL (0.0-0.5); EOS % 1.4 % (0.0-3.0); HEMATOCRIT 45.5 % (36.0-47.0); HEMOGLOBIN 15.5 g/dl (12.0-15.5); LYMPH # 2.9 10^3/uL (1.5-5.0); MEAN CORPUSCULAR HEMOGLOBIN 29.9 pg (27.0-33.0); MEAN CORPUSCULAR HGB CONC 34.1 g/dl (32.0-36.5); MEAN CORPUSCULAR VOLUME 87.7 fl (80.0-96.0); MONO # 0.4 10^3/uL (0.0-0.8); NEUTROPHILS # 3.1 10^3/uL (1.5-8.5); NEUTROPHILS % 47.5 % (36.0-66.0); PLATELET COUNT, AUTOMATED 422 10^3/uL (150-450); RED BLOOD COUNT 5.19 10^6/uL (4.00-5.40); WHITE BLOOD COUNT 6.6 10^3/uL (4.0-10.0)
[2023-08-04 12:19] LABS: ALBUMIN 4.3 G/DL (3.2-5.2); ALKALINE PHOSPHATASE 39 U/L (46-116); ALT/SGPT 23 U/L (7.0-40); AST/SGOT 14 U/L (<34); BILIRUBIN,TOTAL 0.7 MG/DL (0.3-1.2); BLOOD UREA NITROGEN 12 MG/DL (9-23); CALCIUM LEVEL 9.6 MG/DL (8.5-10.1); CARBON DIOXIDE LEVEL 26 MMOL/L (20-31); CHLORIDE LEVEL 105 MMOL/L (98-107); CREATININE FOR GFR 0.69 MG/DL (0.55-1.30); GLOMERULAR FILTRATION RATE > 60.0 (>60); GLUCOSE, FASTING 106 MG/DL (60-100); POTASSIUM SERUM 4.5 MMOL/L (3.5-5.1); SODIUM LEVEL 137 MMOL/L (136-145); TOTAL PROTEIN 7.2 G/DL (5.7-8.2)
[2023-08-04 12:21] LABS: THYROID STIMULATING HORMONE 2.705 uIU/ML (0.55-4.78)
[2023-08-04 12:22] LABS: FREE T4 1.21 NG/DL (0.89-1.76)
== END ==
LOC: M LAB 11:14
PROVIDERS: ATTEND Family Medicine
DX: E55.9 Vitamin D deficiency, unspecified (principal); Z13.29 Encounter for screening for other suspected endocrine disorder; Z13.0 Encounter for screening for diseases of the blood and blood-forming organs and certain disorders involving the immune mechanism

== ENCOUNTER → 2023-12-19 | Outpatient (CLI) | payer BC ==
[~2023-12-19] MED LIST changes: +ONDA-282 PO; -ONDA4TAB6 PO
== END ==
LOC: M WHC 13:00
PROVIDERS: ATTEND Family Medicine
DX: Z12.31 Encounter for screening mammogram for malignant neoplasm of breast (principal)

== ENCOUNTER → 2024-12-21 | Outpatient (CLI) | payer BC ==
[~2024-12-21] MED LIST changes: -FLOM0.4C39 PO; +TAMS-18 PO
== END ==
LOC: M WHC 13:55
PROVIDERS: ATTEND Family Medicine
DX: Z12.31 Encounter for screening mammogram for malignant neoplasm of breast (principal)